=== PATIENT | female | born 1960 | race Caucasian/White ===

== ENCOUNTER 2018-02-11 16:38 | Emergency (ER) | payer OTHER ==
[~2018-02-11] VITALS: Ht 165.1 cm; Wt 72.6 kg
[~2018-02-11 16:38] MED LIST: ALBU90OI6 INH; ASPI81CH PO; BUPR100; Bactrim Ds Tab1 EACH PO; CARI350 PO; CETI10 PO; CITA20 PO; CYCL10 PO; Cyclobenzaprine5 MG PO; GLYB2.5 PO; Guaifenesin Dm118 ML PO; IBUP400 PO; LOSA25 PO; METF500C PO; METO25 PO; Metformin HCl500 MG PO; NITR.4SL SL; OMEP20ER PO; OMEPRAZOLE MAGN20 MG PO; PRED10 PO; PRED20 PO; PROACE100 PO; Percocet 5-3251 EACH PO; ROPI2 PO; RXPROACE PO
[2018-02-11] MEDS ORDERED: PRED5 (16:49)
[2018-02-11] MEDS ORDERED: DULO30 (16:49)
[2018-02-11] MEDS ORDERED: Nortriptyline H10 MG (16:49)
[2018-02-11] MEDS ORDERED: PIOG30 (16:49)
[2018-02-11] MEDS ORDERED: Norco 5-325 Ta1 EACH PO (17:40)
== END 2018-02-11 17:58 | disposition home or self-care (01) ==
LOC: ER 16:38
DX: S69.91XA Unspecified injury of right wrist, hand and finger(s), initial encounter (principal); Z88.8 Allergy status to other drugs, medicaments and biological substances; Z79.899 Other long term (current) drug therapy; Z79.84 Long term (current) use of oral hypoglycemic drugs; Z79.82 Long term (current) use of aspirin; F32.9 Major depressive disorder, single episode, unspecified; K21.9 Gastro-esophageal reflux disease without esophagitis; E11.40 Type 2 diabetes mellitus with diabetic neuropathy, unspecified; I10 Essential (primary) hypertension; Z87.891 Personal history of nicotine dependence; W23.0XXA Caught, crushed, jammed, or pinched between moving objects, initial encounter
CPT/HCPCS: 29125; 73130; 99283

== ENCOUNTER 2018-06-10 13:46 | Emergency (ER) | payer OTHER ==
[~2018-06-10] VITALS: Ht 165.1 cm; Wt 63.5 kg
[~2018-06-10 13:46] MED LIST changes: +DULO30; +Norco 5-325 Ta1 EACH PO; +Nortriptyline H10 MG; +OLAN5; +PIOG30; +PRED5
[2018-06-10 14:13] LABS: BASOPHILS ABSOLUTE AUTO 0.05 K/mm3 (0.00-0.23); BASOPHILS PERCENT AUTO 1 % (0-2); EOSINOPHILS ABSOLUTE AUTO 0.14 K/mm3 (0.00-0.68); EOSINOPHILS PERCENT AUTO 2 % (0-6); Hematocrit 43.5 % (33.0-51.0); Hemoglobin 14.4 g/dL (11.5-16.0); IMMATURE GRAN ABSOLUTE AUTO 0.09 K/mm3 (0.00-0.10); IMMATURE GRAN PERCENT AUTO 1 % (0-1); LYMPHOCYTES ABSOLUTE AUTO 1.96 K/mm3 (0.84-5.20); LYMPHOCYTES PERCENT AUTO 24 % (21-46); MONOCYTES ABSOLUTE AUTO 0.59 K/mm3 (0.16-1.47); MONOCYTES PERCENT AUTO 7 % (4-13); Mean Corpuscular HGB 26.8 pg (26.0-34.0); Mean Corpuscular HGB Conc 33.1 g/dL (31.5-36.5); Mean Corpuscular Volume 81 fL (80-100); Mean Platelet Volume 10.6 fL (9.1-12.4); NEUTROPHILS ABSOLUTE AUTO 5.48 K/mm3 (1.96-9.15); NEUTROPHILS PERCENT AUTO 66 % (41-73); Platelet Count 331 K/mm3 (150-400); RDW Coefficient Variation 12.9 % (11.7-14.2); RDW Standard Deviation 37.1 fL (35.1-46.3); Red Blood Cell Count 5.37 M/mm3 (3.80-5.20); White Blood Cell Count 8.31 K/mm3 (4.00-11.30)
[2018-06-10 14:38] LABS: Alanine Aminotransfer (ALT/SGP 37 U/L (12-78); Albumin, Blood 3.2 g/dL (3.4-5.0); Albumin/Globulin Ratio 0.7 (0.8-1.8); Alk Phos 137 U/L (50-136); Anion Gap 12 mmol/L (6-16); Aspartate Aminotrans (AST/SGOT 19 U/L (12-37); Bilirubin, Total 0.5 mg/dL (0.1-1.0); Blood Urea Nitrogen 12 mg/dL (8-24); Bun/Creatinine Ratio 18.8 (12.0-20.0); CO2, Blood 23 mmol/L (21-32); Calcium, Blood 9.1 mg/dL (8.5-10.1); Chloride, Blood 98 mmol/L (98-108); Creatinine, Blood 0.64 mg/dL (0.40-1.00); Globulin, Blood 4.5 g/dL (2.2-4.0); Glomerular Filtration Rate >60 (60-); Glucose, Blood 498 mg/dL (70-99); Potassium, Blood 4.7 mmol/L (3.5-5.5); Sodium, Blood 133 mmol/L (136-145); Total Protein, Blood 7.7 g/dL (6.4-8.2); Troponin I <0.015 ng/mL (0.000-0.040)
[2018-06-10] MEDS ORDERED: Prilosec Otc20 MG PO (17:35)
== END 2018-06-10 18:48 | disposition home or self-care (01) ==
LOC: ER 13:46
DX: R10.10 Upper abdominal pain, unspecified (principal); E11.65 Type 2 diabetes mellitus with hyperglycemia; E86.0 Dehydration; F32.9 Major depressive disorder, single episode, unspecified; F17.200 Nicotine dependence, unspecified, uncomplicated; Z88.8 Allergy status to other drugs, medicaments and biological substances; Z79.891 Long term (current) use of opiate analgesic; Z79.899 Other long term (current) drug therapy; Z79.84 Long term (current) use of oral hypoglycemic drugs; Z79.52 Long term (current) use of systemic steroids
CPT/HCPCS: 36415; 71046; 74177; 76705; 80053; 82947; 83690; 84484; 85025; 93005; 93010; 96361; 96374; 96375; 96376; 99285-25; J1170; J1815; J2405; J7120; Q9967

== ENCOUNTER 2018-06-22 12:25 | Inpatient (IN) | payer OTHER ==
[~2018-06-22] VITALS: Ht 165.1 cm; Wt 66.9 kg
[~2018-06-22 12:25] MED LIST changes: -DULO30 PO; +DULO60 PO; -ESTR2 PO; -Nortriptyline H10 MG; +Nortriptyline H10 MG PO; +OLAN2.5 PO; -OLAN5 PO
[2018-06-22 13:09] LABS: Prothrombin Time Results 10.3 Sec (9.7-11.5)
[2018-06-22 14:20] LABS: Source, Urine Clean Catch
[2018-06-22 14:23] LABS: Bilirubin, Urine Neg (Neg); Blood, Urine Neg (Neg); Glucose Qualitative, Urine 4+ (Neg); Ketones, Urine Neg (Neg); Leukocyte Esterase, Urine 1+ (Neg); Nitrite, Urine Neg (Neg); Protein, Urine 1+ (Neg); Urobilinogen, Urine NORM (Normal)
[2018-06-22 14:34] LABS: Appearance, Urine Hazy (Clear); Color, Urine Yellow (P-Yellow)
[2018-06-22 14:35] LABS: Bacteria Mod /hpf; Red Blood Cells, Urine 0-2 /hpf (0-2); Squamous Epithelial Cells Few /hpf (Few)
[2018-06-23 05:15] LABS: BASOPHILS ABSOLUTE AUTO 0.04 K/mm3 (0.00-0.23); BASOPHILS PERCENT AUTO 0 % (0-2); EOSINOPHILS ABSOLUTE AUTO 0.17 K/mm3 (0.00-0.68); EOSINOPHILS PERCENT AUTO 1 % (0-6); Hematocrit 33.2 % (33.0-51.0); Hemoglobin 10.5 g/dL (11.5-16.0); IMMATURE GRAN ABSOLUTE AUTO 0.12 K/mm3 (0.00-0.10); IMMATURE GRAN PERCENT AUTO 1 % (0-1); LYMPHOCYTES ABSOLUTE AUTO 2.72 K/mm3 (0.84-5.20); LYMPHOCYTES PERCENT AUTO 19 % (21-46); MONOCYTES ABSOLUTE AUTO 1.28 K/mm3 (0.16-1.47); MONOCYTES PERCENT AUTO 9 % (4-13); Mean Corpuscular HGB 26.9 pg (26.0-34.0); Mean Corpuscular HGB Conc 31.6 g/dL (31.5-36.5); Mean Corpuscular Volume 85 fL (80-100); Mean Platelet Volume 10.4 fL (9.1-12.4); NEUTROPHILS ABSOLUTE AUTO 10.25 K/mm3 (1.96-9.15); NEUTROPHILS PERCENT AUTO 70 % (41-73); Platelet Count 259 K/mm3 (150-400); RDW Coefficient Variation 13.2 % (11.7-14.2); RDW Standard Deviation 40.8 fL (35.1-46.3); Red Blood Cell Count 3.91 M/mm3 (3.80-5.20); White Blood Cell Count 14.58 K/mm3 (4.00-11.30)
[2018-06-23 05:33] LABS: Anion Gap 7 mmol/L (6-16); Blood Urea Nitrogen 9 mg/dL (8-24); Bun/Creatinine Ratio 11.8 (12.0-20.0); CO2, Blood 28 mmol/L (21-32); Calcium, Blood 8.2 mg/dL (8.5-10.1); Chloride, Blood 107 mmol/L (98-108); Creatinine, Blood 0.76 mg/dL (0.40-1.00); Glomerular Filtration Rate >60 (60-); Glucose, Blood 288 mg/dL (70-99)
[2018-06-23 05:37] LABS: Sodium, Blood 142 mmol/L (136-145)
[2018-06-23] MEDS ORDERED: Estradiol1 MG PO (13:43)
[2018-06-24] MEDS ORDERED: LEVO750 PO (11:12)
[2018-06-24] MEDS ORDERED: Culturelle1 CAP PO (11:13)
== END 2018-06-24 12:05 | disposition home or self-care (01) | DRG 871 ==
LOC: ER 12:25 → MEDS 15:23 → ENPENDDIS 06-24 09:31 → MEDS 06-24 12:05
PROVIDERS: Internal Medicine; Physician Assistant
DX: A41.51 Sepsis due to Escherichia coli [E. coli] (principal); N17.0 Acute kidney failure with tubular necrosis; E87.1 Hypo-osmolality and hyponatremia; E11.40 Type 2 diabetes mellitus with diabetic neuropathy, unspecified; E78.5 Hyperlipidemia, unspecified; E86.0 Dehydration; E87.6 Hypokalemia; E11.65 Type 2 diabetes mellitus with hyperglycemia
CPT/HCPCS: 36415; 71046; 80048; 81001; 82947; 83605; 83690; 83735; 85025; 85610; 85730; 87086; 93005; 93010; 96361; 96374; 96375; 99285-25; J1650; J1885; J1956; J7030; J7120

== ENCOUNTER → 2018-06-22 | Outpatient (CLI) | payer OTHER ==
[~2018-06-22] MED LIST changes: -DULO30; +DULO30 PO; +ESTR2 PO; -OLAN5; +OLAN5 PO; +Prilosec Otc20 MG PO
[2018-06-22 11:19] LABS: BASOPHILS ABSOLUTE AUTO 0.05 K/mm3 (0.00-0.23); BASOPHILS PERCENT AUTO 0 % (0-2); EOSINOPHILS ABSOLUTE AUTO 0.08 K/mm3 (0.00-0.68); EOSINOPHILS PERCENT AUTO 0 % (0-6); Hematocrit 36.1 % (33.0-51.0); Hemoglobin 12.1 g/dL (11.5-16.0); IMMATURE GRAN ABSOLUTE AUTO 0.12 K/mm3 (0.00-0.10); IMMATURE GRAN PERCENT AUTO 1 % (0-1); LYMPHOCYTES ABSOLUTE AUTO 2.06 K/mm3 (0.84-5.20); LYMPHOCYTES PERCENT AUTO 11 % (21-46); MONOCYTES PERCENT AUTO 7 % (4-13); Mean Corpuscular HGB 27.4 pg (26.0-34.0); Mean Corpuscular HGB Conc 33.5 g/dL (31.5-36.5); Mean Corpuscular Volume 82 fL (80-100); Mean Platelet Volume 10.5 fL (9.1-12.4); NEUTROPHILS ABSOLUTE AUTO 14.68 K/mm3 (1.96-9.15); NEUTROPHILS PERCENT AUTO 80 % (41-73); Platelet Count 299 K/mm3 (150-400); RDW Coefficient Variation 13.1 % (11.7-14.2); RDW Standard Deviation 39.1 fL (35.1-46.3); Red Blood Cell Count 4.41 M/mm3 (3.80-5.20); White Blood Cell Count 18.29 K/mm3 (4.00-11.30)
[2018-06-22 11:30] LABS: Albumin, Blood 2.7 g/dL (3.4-5.0); Albumin/Globulin Ratio 0.6 (0.8-1.8); Bilirubin, Total 0.4 mg/dL (0.1-1.0); Globulin, Blood 4.9 g/dL (2.2-4.0); Potassium, Blood 3.4 mmol/L (3.5-5.5); Total Protein, Blood 7.6 g/dL (6.4-8.2)
[2018-06-22 11:41] LABS: Bun/Creatinine Ratio 5.8 (12.0-20.0); Calcium, Blood 9.5 mg/dL (8.5-10.1); Creatinine, Blood 1.04 mg/dL (0.40-1.00)
== END | disposition home or self-care (01) ==
LOC: LAB EV 11:14 → LAB SHORT 11:14
PROVIDERS: Physician Assistant
DX: E11.9 Type 2 diabetes mellitus without complications (principal); N39.0 Urinary tract infection, site not specified
CPT/HCPCS: 80053; 83036; 83690; 85025

== ENCOUNTER 2019-05-05 20:55 | Emergency (ER) | payer OTHER ==
[~2019-05-05] VITALS: Ht 165.1 cm; Wt 65.8 kg
[~2019-05-05 20:55] MED LIST changes: +Culturelle1 CAP PO; +Estradiol1 MG PO; +LEVO750 PO; -Metformin HCl500 MG PO; -OLAN2.5 PO; -OMEPRAZOLE MAGN20 MG PO
[2019-05-05 21:38] LABS: BASOPHILS ABSOLUTE AUTO 0.06 K/mm3 (0.00-0.23); BASOPHILS PERCENT AUTO 0 % (0-2); EOSINOPHILS ABSOLUTE AUTO 0.06 K/mm3 (0.00-0.68); EOSINOPHILS PERCENT AUTO 0 % (0-6); Hematocrit 40.5 % (33.0-51.0); Hemoglobin 13.5 g/dL (11.5-16.0); IMMATURE GRAN PERCENT AUTO 1 % (0-1); LYMPHOCYTES ABSOLUTE AUTO 1.45 K/mm3 (0.84-5.20); LYMPHOCYTES PERCENT AUTO 8 % (21-46); MONOCYTES ABSOLUTE AUTO 0.63 K/mm3 (0.16-1.47); MONOCYTES PERCENT AUTO 4 % (4-13); Mean Corpuscular HGB 27.2 pg (26.0-34.0); Mean Corpuscular HGB Conc 33.3 g/dL (31.5-36.5); Mean Corpuscular Volume 82 fL (80-100); Mean Platelet Volume 10.9 fL (9.1-12.4); NEUTROPHILS ABSOLUTE AUTO 15.02 K/mm3 (1.96-9.15); NEUTROPHILS PERCENT AUTO 87 % (41-73); Platelet Count 327 K/mm3 (150-400); RDW Coefficient Variation 13.1 % (11.7-14.2); RDW Standard Deviation 38.5 fL (35.1-46.3); Red Blood Cell Count 4.96 M/mm3 (3.80-5.20); White Blood Cell Count 17.32 K/mm3 (4.00-11.30)
[2019-05-05 21:44] LABS: Source, Urine Clean Catch
[2019-05-05 21:45] LABS: Base Excess Venous 1.3 mmol/L; Bicarbonate Venous 26.7 mmol/L (24.0-30.0); PCO2 Venous 25.4 mmHg (38-42); PO2 Venous 157 mmHg (38-42); pH Blood Venous 7.57 (7.34-7.37)
[2019-05-05 21:46] LABS: Bilirubin, Urine Neg (Neg); Blood, Urine Neg (Neg); Glucose Qualitative, Urine 4+ (Neg); Ketones, Urine 1+ (Neg); Leukocyte Esterase, Urine Neg (Neg); Nitrite, Urine Neg (Neg); Protein, Urine Neg (Neg); Urobilinogen, Urine NORM (Normal)
[2019-05-05 21:50] LABS: Appearance, Urine Clear (Clear); Color, Urine Yellow (P-Yellow)
[2019-05-05] MEDS ORDERED: PRED20 PO (21:54)
[2019-05-05 21:56] LABS: Alanine Aminotransfer (ALT/SGP 28 U/L (12-78); Albumin, Blood 3.5 g/dL (3.4-5.0); Albumin/Globulin Ratio 0.8 (0.8-1.8); Alk Phos 198 U/L (50-136); Anion Gap 12 mmol/L (6-16); Aspartate Aminotrans (AST/SGOT 14 U/L (12-37); Bilirubin, Total 0.4 mg/dL (0.1-1.0); Blood Urea Nitrogen 11 mg/dL (8-24); Bun/Creatinine Ratio 16.9 (12.0-20.0); CO2, Blood 23 mmol/L (21-32); Calcium, Blood 9.9 mg/dL (8.5-10.1); Chloride, Blood 98 mmol/L (98-108); Creatinine, Blood 0.65 mg/dL (0.40-1.00); Globulin, Blood 4.6 g/dL (2.2-4.0); Glomerular Filtration Rate >60 (60-); Glucose, Blood 392 mg/dL (70-99); Potassium, Blood 3.8 mmol/L (3.5-5.5); Sodium, Blood 133 mmol/L (136-145); Total Protein, Blood 8.1 g/dL (6.4-8.2)
[2019-05-06] MEDS ORDERED: Cyclobenzaprine5 MG PO (00:36)
[2019-05-06] MEDS ORDERED: BENZ100A PO (00:36)
== END 2019-05-06 01:20 | disposition home or self-care (01) ==
LOC: ER 20:55
PROVIDERS: Physician Assistant
DX: R10.9 Unspecified abdominal pain (principal); R53.81 Other malaise; R05 Cough; M62.838 Other muscle spasm; Z88.8 Allergy status to other drugs, medicaments and biological substances; Z79.899 Other long term (current) drug therapy; Z79.52 Long term (current) use of systemic steroids; F32.9 Major depressive disorder, single episode, unspecified; E11.9 Type 2 diabetes mellitus without complications; G89.29 Other chronic pain
CPT/HCPCS: 36415; 71046; 74176; 80053; 81003; 82010; 82803; 82947; 85025; 93005; 93010; 96361; 96374; 96375; 99285-25; J1815; J1885; J2270; J7030

== ENCOUNTER 2019-05-20 13:05 | Inpatient (IN) | payer OTHER ==
[~2019-05-20] VITALS: Ht 165.1 cm; Wt 63.5 kg
[~2019-05-20 13:05] MED LIST changes: -BASAGLAR K100 UNIT/1 SC; -BUPR150ER PO; -CEPH250SUA PO; -HYDHCL25 PO; -Metformin HCl1000 MG PO; -OLAN2.5 PO; -OMEPRAZOLE MAGN20 MG PO; -PIOG15 PO
[2019-05-20 14:33] LABS: BASOPHILS ABSOLUTE AUTO 0.06 K/mm3 (0.00-0.23); BASOPHILS PERCENT AUTO 1 % (0-2); EOSINOPHILS ABSOLUTE AUTO 0.08 K/mm3 (0.00-0.68); EOSINOPHILS PERCENT AUTO 1 % (0-6); Hemoglobin 11.9 g/dL (11.5-16.0); IMMATURE GRAN ABSOLUTE AUTO 0.04 K/mm3 (0.00-0.10); IMMATURE GRAN PERCENT AUTO 1 % (0-1); LYMPHOCYTES ABSOLUTE AUTO 1.87 K/mm3 (0.84-5.20); LYMPHOCYTES PERCENT AUTO 25 % (21-46); MONOCYTES ABSOLUTE AUTO 0.53 K/mm3 (0.16-1.47); MONOCYTES PERCENT AUTO 7 % (4-13); Mean Corpuscular HGB Conc 32.2 g/dL (31.5-36.5); Mean Corpuscular Volume 84 fL (80-100); Mean Platelet Volume 10.6 fL (9.1-12.4); NEUTROPHILS ABSOLUTE AUTO 4.81 K/mm3 (1.96-9.15); NEUTROPHILS PERCENT AUTO 65 % (41-73); Platelet Count 546 K/mm3 (150-400); RDW Coefficient Variation 13.7 % (11.7-14.2); RDW Standard Deviation 41.8 fL (35.1-46.3); White Blood Cell Count 7.39 K/mm3 (4.00-11.30)
[2019-05-20] MEDS ORDERED: Metformin HCl1000 MG PO (14:43)
[2019-05-20] MEDS ORDERED: BASAGLAR K100 UNIT/1 SC (14:44)
[2019-05-20] MEDS ORDERED: OLAN2.5 PO (14:44)
[2019-05-20] MEDS ORDERED: PIOG15 PO (14:44)
[2019-05-20] MEDS ORDERED: OMEPRAZOLE MAGN20 MG PO (14:44)
[2019-05-20 15:00] LABS: Alanine Aminotransfer (ALT/SGP 28 U/L (12-78); Albumin, Blood 2.8 g/dL (3.4-5.0); Albumin/Globulin Ratio 0.6 (0.8-1.8); Alk Phos 128 U/L (50-136); Anion Gap 9 mmol/L (6-16); Aspartate Aminotrans (AST/SGOT 17 U/L (12-37); Bilirubin, Total 0.3 mg/dL (0.1-1.0); Blood Urea Nitrogen 11 mg/dL (8-24); Bun/Creatinine Ratio 16.3 (12.0-20.0); CO2, Blood 23 mmol/L (21-32); Calcium, Blood 8.9 mg/dL (8.5-10.1); Chloride, Blood 100 mmol/L (98-108); Creatinine, Blood 0.67 mg/dL (0.40-1.00); Globulin, Blood 4.7 g/dL (2.2-4.0); Glomerular Filtration Rate >60 (60-); Glucose, Blood 668 mg/dL (70-99); Potassium, Blood 4.8 mmol/L (3.5-5.5); Sodium, Blood 132 mmol/L (136-145); Total Protein, Blood 7.5 g/dL (6.4-8.2)
[2019-05-20] MEDS ORDERED: HYDHCL25 PO (15:01)
[2019-05-20] MEDS ORDERED: BUPR150ER PO (15:02)
--- NOTE | 2019-05-20 18:00 | NUR ---
RECIEVED REPORT FROM ED BLESSING MARTINEZ, PER REPORT PT ALERT, ORIENTED AND INDEPENDENT. PT IS CURRENTLY IN MRI AND WILL BE SENT TO THE FLOOR WHEN TEST IS COMPLETE.
--- NOTE | 2019-05-20 19:44 | NUR ---
SHIFT SUMMARY- PT ARRIVED TO MEDICAL FLOOR AFTER 7 PM PASSED ON ED REPORT TO NIGHT RN. PT C/O BEING TELLY NIGHT RN WILL CHECK BG.
[2019-05-21 04:32] LABS: Hematocrit 33.3 % (33.0-51.0); Hemoglobin 10.8 g/dL (11.5-16.0); Mean Corpuscular HGB 26.9 pg (26.0-34.0); Mean Corpuscular HGB Conc 32.4 g/dL (31.5-36.5); Mean Corpuscular Volume 83 fL (80-100); Mean Platelet Volume 9.8 fL (9.1-12.4); Platelet Count 466 K/mm3 (150-400); RDW Coefficient Variation 13.7 % (11.7-14.2); RDW Standard Deviation 40.6 fL (35.1-46.3); Red Blood Cell Count 4.02 M/mm3 (3.80-5.20); White Blood Cell Count 7.53 K/mm3 (4.00-11.30)
[2019-05-21 04:53] LABS: Anion Gap 3 mmol/L (6-16); Blood Urea Nitrogen 9 mg/dL (8-24); CO2, Blood 28 mmol/L (21-32); Calcium, Blood 8.3 mg/dL (8.5-10.1); Chloride, Blood 111 mmol/L (98-108); Creatinine, Blood 0.64 mg/dL (0.40-1.00); Glomerular Filtration Rate >60 (60-); Glucose, Blood 201 mg/dL (70-99); Potassium, Blood 3.7 mmol/L (3.5-5.5)
[2019-05-21 06:32] LABS: Sodium, Blood 142 mmol/L (136-145)
--- NOTE | 2019-05-21 06:47 | NUR ---
SHIFT SUMMARY PT WAS A NEW ADMIT DURING THE NIGHT, ARRIVING ON THE FLOOR AT 1908. SHE IS A&O X 4, THOUGH TEARFUL AND ANXIOUS AT TIMES, AND INDEPENDENT TO THE BATHROOM. SHE WAS ADMITTED FOR CELLULITIS OF THE L GREAT TOE, AND BLOOD SUGAR CONTROL. SHE REPORTED PAIN IN HER TOE, AND WAS MEDICATED WITH PRN TYLENOL AFTER CONSULTING WITH THE HOSPITALIST LUCRETIA HARDING AT 2210. VITALS REMAINED STABLE. PT RECEIVED NS + 20 MEQ OF K+ THROUGH THE NIGHT AT 100/HR. NO COMPLAINTS OF SOB OR NAUSEA. NO OTHER ACUTE CHANGES IN PT CONDITION NOTED. WILL CONTINUE TO MONITOR AND TREAT PER EMAR UNTIL HAND OFF TO DAY SHIFT.
--- NOTE | 2019-05-21 18:47 | NUR ---
SHIFT SUMMARY NO ACUTE CHANGES. PATIENT MEDICATED X 1 FOR PAIN THIS SHIFT, DENIES NAUSEA AND SHORTNESS OF BREATH. UP INDEPENENT IN ROOM. NAPPED MOST OF SHIFT. CALL LIGHT INR EACH, WILL CONTINUE TO MONITOR.
[2019-05-22 06:05] LABS: Vancomycin, Trough 6.9 ug/mL (5.0-10.0)
--- NOTE | 2019-05-22 06:32 | NUR ---
SHIFT SUMMARY PATIENT IS ALERT AND ORIENTED. USES CALL LIGHT APPROPRIATELY. ON ROOM AIR. SLEPT WELL THROUGHOUT THE NIGHT. INDEPENDENT IN ROOM. NO NEW CHANGES THROUGHOUT THE NIGHT. PATIENT HAD COMPLAINED OF HER IV HURTING YESTERDAY, HOWEVER FLUSHES WELL WITH NO PAIN THIS AM. VITALS STABLE.
[2019-05-22] MEDS ORDERED: CEPH250SUA PO (10:26)
--- NOTE | 2019-05-22 11:46 | NUR ---
DISCHARGE DISCHARGE MEDICATIONS AND INSTRUCTIONS EXPLAINED TO PATIENT. PATIENT STATED UNDERSTANDING. IV REMOVED WITHOUT DIFFICULTY. BELONGINGS WITH PATIENT. PATIENT TRANSFERED TO [facility] VIA WHEELCHAIR.
== END 2019-05-22 11:43 | disposition home or self-care (01) | DRG 639 ==
LOC: ER 13:05 → MEDS 16:26 → ENPENDDIS 05-22 10:03 → MEDS 05-22 11:43
PROVIDERS: Emergency Medicine; Pharmacist; ADMIT Hospitalist
DX: E11.65 Type 2 diabetes mellitus with hyperglycemia (principal); L03.032 Cellulitis of left toe; Z91.14 Patient's other noncompliance with medication regimen; K21.9 Gastro-esophageal reflux disease without esophagitis; F32.9 Major depressive disorder, single episode, unspecified; F41.9 Anxiety disorder, unspecified; Z87.891 Personal history of nicotine dependence; Z79.4 Long term (current) use of insulin; E78.5 Hyperlipidemia, unspecified; E11.40 Type 2 diabetes mellitus with diabetic neuropathy, unspecified
CPT/HCPCS: 36415; 71045; 73720; 80048; 80053; 80202; 82947; 84145; 85025; 85027; 93005; 93010; 96374; 96375; 99285-25; A9270; A9577; J1650; J1815; J2543; J3370; J3480; J7120

== ENCOUNTER → 2019-05-20 | Outpatient (CLI) | payer OTHER ==
[~2019-05-20] MED LIST changes: +BASAGLAR K100 UNIT/1 SC; +BENZ100A PO; +BUPR150ER PO; +CEPH250SUA PO; +HYDHCL25 PO; +Metformin HCl1000 MG PO; +OLAN2.5 PO; +OMEPRAZOLE MAGN20 MG PO; +PIOG15 PO
[2019-05-20 12:50] LABS: BASOPHILS ABSOLUTE AUTO 0.05 K/mm3 (0.00-0.23); BASOPHILS PERCENT AUTO 1 % (0-2); EOSINOPHILS ABSOLUTE AUTO 0.07 K/mm3 (0.00-0.68); EOSINOPHILS PERCENT AUTO 1 % (0-6); Hematocrit 40.4 % (33.0-51.0); Hemoglobin 13.2 g/dL (11.5-16.0); IMMATURE GRAN ABSOLUTE AUTO 0.05 K/mm3 (0.00-0.10); IMMATURE GRAN PERCENT AUTO 1 % (0-1); LYMPHOCYTES ABSOLUTE AUTO 1.44 K/mm3 (0.84-5.20); LYMPHOCYTES PERCENT AUTO 22 % (21-46); MONOCYTES ABSOLUTE AUTO 0.33 K/mm3 (0.16-1.47); MONOCYTES PERCENT AUTO 5 % (4-13); Mean Corpuscular HGB Conc 32.7 g/dL (31.5-36.5); Mean Corpuscular Volume 83 fL (80-100); NEUTROPHILS ABSOLUTE AUTO 4.64 K/mm3 (1.96-9.15); NEUTROPHILS PERCENT AUTO 70 % (41-73); Platelet Count 562 K/mm3 (150-400); RDW Standard Deviation 40.9 fL (35.1-46.3); Red Blood Cell Count 4.89 M/mm3 (3.80-5.20); White Blood Cell Count 6.58 K/mm3 (4.00-11.30)
[2019-05-20 13:01] LABS: Albumin, Blood 3.1 g/dL (3.4-5.0); Albumin/Globulin Ratio 0.6 (0.8-1.8); Bilirubin, Total 0.4 mg/dL (0.1-1.0); Bun/Creatinine Ratio 9.2 (12.0-20.0); Calcium, Blood 9.1 mg/dL (8.5-10.1); Creatinine, Blood 1.2 mg/dL (0.40-1.00); Globulin, Blood 5.2 g/dL (2.2-4.0); Potassium, Blood 4.2 mmol/L (3.5-5.5); Total Protein, Blood 8.3 g/dL (6.4-8.2)
== END ==
LOC: LAB SHORT 12:46 → LAB EV 12:46
PROVIDERS: Nurse Practitioner
DX: E86.0 Dehydration (principal)
CPT/HCPCS: 80053; 85025

== ENCOUNTER → 2021-03-21 | Outpatient (CLI) | payer OTHER ==
[~2021-03-21] MED LIST changes: +BASAGLAR K100 UNIT/1 SC; +BUPR150ER PO; +CEPH250SUA PO; +HYDHCL25 PO; +Metformin HCl1000 MG PO; +OLAN2.5 PO; +OMEPRAZOLE MAGN20 MG PO; +PIOG15 PO
[2021-03-22 14:10] LABS: HPV 16 Negative (Negative); HPV 18 Negative (Negative); HPV OTHER HR TYPES Negative (Negative)
== END ==
LOC: LAB SHORT 16:16 → LAB 16:16
PROVIDERS: Obstetrics & Gynecology
DX: Z01.419 Encounter for gynecological examination (general) (routine) without abnormal findings (principal)
CPT/HCPCS: 87624; G0123

== ENCOUNTER 2022-05-13 15:26 | Emergency (ER) | payer OTHER ==
[~2022-05-13] VITALS: Ht 165.1 cm; Wt 49.9 kg
[2022-05-13 16:13] LABS: BASOPHILS ABSOLUTE AUTO 0.09 K/mm3 (0.00-0.23); BASOPHILS PERCENT AUTO 1 % (0-2); EOSINOPHILS ABSOLUTE AUTO 0.26 K/mm3 (0.00-0.68); EOSINOPHILS PERCENT AUTO 2 % (0-6); Hematocrit 43.4 % (33.0-51.0); Hemoglobin 14.8 g/dL (11.5-16.0); IMMATURE GRAN ABSOLUTE AUTO 0.04 K/mm3 (0.00-0.10); IMMATURE GRAN PERCENT AUTO 0 % (0-1); LYMPHOCYTES ABSOLUTE AUTO 3.25 K/mm3 (0.84-5.20); LYMPHOCYTES PERCENT AUTO 27 % (21-46); MONOCYTES ABSOLUTE AUTO 0.69 K/mm3 (0.16-1.47); MONOCYTES PERCENT AUTO 6 % (4-13); Mean Corpuscular HGB 27.8 pg (26.0-34.0); Mean Corpuscular HGB Conc 34.1 g/dL (31.5-36.5); Mean Corpuscular Volume 82 fL (80-100); Mean Platelet Volume 10.3 fL (9.1-12.4); NEUTROPHILS ABSOLUTE AUTO 7.54 K/mm3 (1.96-9.15); NEUTROPHILS PERCENT AUTO 64 % (41-73); Platelet Count 409 K/mm3 (150-400); RDW Coefficient Variation 12.6 % (11.7-14.2); RDW Standard Deviation 37.4 fL (35.1-46.3); Red Blood Cell Count 5.32 M/mm3 (3.80-5.20); White Blood Cell Count 11.87 K/mm3 (4.00-11.30)
[2022-05-13 16:17] LABS: Base Excess Venous 4.7 mmol/L; Bicarbonate Venous 28.2 mmol/L (24.0-30.0); pH Blood Venous 7.46 (7.34-7.37)
[2022-05-13 16:43] LABS: Albumin, Blood 3.6 g/dL (3.4-5.0); Albumin/Globulin Ratio 0.7 (0.8-1.8); Beta-hydroxybutyrate 1.4 mg/dL (0.2-2.8); Bilirubin, Total 0.5 mg/dL (0.1-1.0); Calcium, Blood 9.9 mg/dL (8.5-10.1); Creatinine, Blood 0.75 mg/dL (0.40-1.00); Potassium, Blood 3.9 mmol/L (3.5-5.5); Total Protein, Blood 8.6 g/dL (6.4-8.2)
[2022-05-13 20:14] LABS: Source, Urine Clean Catch
[2022-05-13 20:20] LABS: Bilirubin, Urine Neg (Neg); Blood, Urine Neg (Neg); Glucose Qualitative, Urine 4+ (Neg); Ketones, Urine Neg (Neg); Leukocyte Esterase, Urine Neg (Neg); Nitrite, Urine Neg (Neg); Protein, Urine Neg (Neg); Specific Gravity, Urine 1.015 (1.003-1.022); Urobilinogen, Urine NORM (Normal)
[2022-05-13 20:28] LABS: Appearance, Urine Clear (Clear); Color, Urine Pale Yellow (P-Yellow)
[2022-05-13] MEDS ORDERED: ALBU90OI INH (21:18)
[2022-05-13] MEDS ORDERED: METF500 PO (21:18)
[2022-05-13] MEDS ORDERED: Actos15 MG PO (21:18)
== END 2022-05-13 22:29 | disposition home or self-care (01) ==
LOC: ER 15:26
PROVIDERS: Physician Assistant
DX: E11.65 Type 2 diabetes mellitus with hyperglycemia (principal); Z76.0 Encounter for issue of repeat prescription; K21.9 Gastro-esophageal reflux disease without esophagitis; E11.40 Type 2 diabetes mellitus with diabetic neuropathy, unspecified; J44.9 Chronic obstructive pulmonary disease, unspecified; Z79.4 Long term (current) use of insulin; Z79.899 Other long term (current) drug therapy; Z59.02 Unsheltered homelessness; Z88.6 Allergy status to analgesic agent; Z88.5 Allergy status to narcotic agent; Z88.8 Allergy status to other drugs, medicaments and biological substances
CPT/HCPCS: 71045; 80053; 81003; 82010; 82803; 82947; 85025; 87086; 93005; 93010; 96360; 99285-25; A9270; J1815; J7120